=== PATIENT | male | born 1985 | race Hispanic/Latino ===

== ENCOUNTER 2017-02-02 13:11 | Emergency (ER) | payer MEDICAID ==
[2017-02-02 13:25] VITALS: BP 146/80; PULSE 110; RESP 18; TEMP 97.4; O2SAT 99
--- NOTE | 2017-02-02 15:04 | ED PDOC ---
Lower Extremity Pain/Injury Time Seen by Provider: 02/02/17 13:28 Chief Complaint (Nursing): Lower Extremity Problem/Injury Chief Complaint (Provider): Left Foot Pain History Per: Patient History/Exam Limitations: no limitations Onset/Duration Of Symptoms: Days (x 2 weeks) Current Symptoms Are (Timing): Still Present Additional Complaint(s): Wallace Lee is a 31 y/o male who presents to the ED complaining of left foot pain. States that 2 weeks ago he stubbed his foot on a hard brick wall, thereafter he had pain localized at his great toe, which is now spread to his whole foot. Denies numbness and tingling. Self-medicating with Motrin but did not take anything today. PMD: Unknown Past Medical History Reviewed: Historical Data, Nursing Documentation, Vital Signs Vital Signs: Last Vital Signs Temp 97.4 F L 02/02/17 13:22 Pulse 110 H 02/02/17 13:22 Resp 18 02/02/17 13:22 BP 146/80 02/02/17 13:22 Pulse Ox 99 02/02/17 13:22 - Medical History PMH: No Chronic Diseases - Surgical History Other surgeries: Musculoskeletal surgery - Family History Family History: States: Unknown Family Hx - Social History Current smoker - smoking cessation education provided: No Alcohol: None Drugs: Denies - Home Medications Home Medications: Ambulatory Orders Medication Instructions Recorded Ibuprofen [Motrin Tab] 800 mg PO Q6H PRN #20 tab 02/02/17 - Allergies Allergies/Adverse Reactions: Allergies Allergy/AdvReac Type Severity Reaction Status Date / Time No Known Allergies Allergy Verified 02/02/17 13:21 Review of Systems ROS Statement: Except As Marked, All Systems Reviewed And Found Negative Musculoskeletal: Positive for: Foot Pain (Left) Neurological: Negative for: Numbness (and tingling) Physical Exam - Reviewed Nursing Documentation Reviewed: Yes Vital Signs Reviewed: Yes - Physical Exam Appears: Positive for: Well, Non-toxic, No Acute Distress Skin: Positive for: Normal Color, Warm, Dry Eye Exam: Positive for: Normal appearance ENT: Positive for: Normal ENT Inspection Neck: Positive for: Normal Respiratory: Negative for: Accessory Muscle Use, Respiratory Distress Pulses-Dorsalis Pedis (L): 2+ Pulses-Dorsalis Pedis (R): 2+ Pulses-Post. Tibialis (L): 2+ Pulses-Post. Tibialis (R): 2+ Extremity: Positive for: Normal ROM, Tenderness (to the lateral foot), Swelling (Mild ). Negative for: Deformity Neurologic/Psych: Positive for: Alert, Oriented - ECG O2 Sat by Pulse Oximetry: 99 (RA) Pulse Ox Interpretation: Normal Medical Decision Making Medical Decision Making: Time: 13:49 Initial Impression: Left foot pain, R/o fracture Initial Plan: --Ibuprofen 600 mg PO --Pending X-Ray Left Foot/Great Toe X-Ray Left Foot: FINDINGS: BONES: No definitive radiographic evidence of acute displaced fracture nor dislocation. JOINTS: Normal. SOFT TISSUES: Questionable mild dorsal distal soft tissue swelling at the level of the distal metatarsals OTHER FINDINGS: None. IMPRESSION: No evidence of acute displaced fracture nor dislocation. If symptoms persist consider repeat radiographs in 5-10 days as most fractures should become radiographically evident in this timeframe. Time: 15:04 Clinical Impression: Foot Pain Upon provider reevaluation patient is medically stable, and requires no further treatment in the ED at this time. Patient will be discharged home with Rx for Motrin. Counseling was provided and all questions were answered regarding diagnosis and need for follow up with Podiatry Clinic. There is agreement to discharge plan. Return if symptoms persist or worsen. Scribe Attestation: Documented by Briana Chávez, acting as a scribe for Susan Quispe PA-C Provider Scribe Attestation: All medical record entries made by the Scribe were at my direction and personally dictated by me. I have reviewed the chart and agree that the record accurately reflects my personal performance of the history, physical exam, medical decision making, and the department course for this patient. I have also personally directed, reviewed, and agree with the discharge instructions and disposition. Disposition - Clinical Impression Clinical Impression: Foot pain Clinical Impression: (Ruled Out): Fracture of left fibula - Patient ED Disposition Is Patient to be Admitted: No Counseled Patient/Family Regarding: Diagnosis, Need For Followup - Disposition Referrals: Podiatry Clinic [Outside] Disposition: Routine/Home Disposition Time: 15:04 Condition: GOOD Additional Instructions: Ice, elevation, motrin. Prescriptions: Ibuprofen [Motrin Tab] 800 mg PO Q6H PRN #20 tab PRN Reason: Pain Instructions: Arthralgia (ED)
--- NOTE | 2017-02-02 15:20 | RAD ---
PROCEDURE: Radiographs of the left great toe. TECHNIQUE:: 3 standard views of the left foot were performed. COMPARISON: None. FINDINGS: BONES: No definitive radiographic evidence of acute displaced fracture nor dislocation. JOINTS: Normal. SOFT TISSUES: Questionable mild dorsal distal soft tissue swelling at the level of the distal metatarsals OTHER FINDINGS: None. IMPRESSION: No evidence of acute displaced fracture nor dislocation. If symptoms persist consider repeat radiographs in 5-10 days as most fractures should become radiographically evident in this timeframe.
== END 2017-02-02 15:16 | disposition home or self-care (01) ==
LOC: H.ER 13:11
DX: M79.672 Pain in left foot (principal)